=== PATIENT | female | born 1950 | race Caucasian/White ===

== ENCOUNTER 2017-02-10 09:35 | Outpatient (CLI) | payer MEDICARE, OTHER ==
[2017-02-10 13:40] LABS: BASOPHILS % (AUTO) 0.7 %; EOSINOPHILS # (AUTO) 0.1 10^3/uL (0.0-0.7); EOSINOPHILS % (AUTO) 1.7 %; HCT - HEMATOCRIT 38.3 % (37.0-47.0); LYMPHOCYTES # (AUTO) 1.2 10^3/uL (1.5-3.5); LYMPHOCYTES % (AUTO) 17.6 %; MEAN CORPUSCULAR HEMOGLOBIN 29.3 pg (27.0-31.0); MEAN CORPUSCULAR HGB CONC 33.9 g/dL (32.0-36.0); MEAN CORPUSCULAR VOLUME 86.5 fL (81.0-99.0); MONOCYTES # (AUTO) 0.6 10^3/uL (0.0-1.0); MONOCYTES % (AUTO) 8.5 %; NEUTROPHILS % (AUTO) 71.5 %; RED BLOOD COUNT 4.43 10^6/uL (4.20-5.40); RED CELL DISTRIBUTION WIDTH 14.2 % (12.0-15.0)
[2017-02-10 14:10] LABS: ALBUMIN/GLOBULIN RATIO 1.2 (1.0-2.2); BILIRUBIN,TOTAL 0.7 mg/dL (0.2-1.0); BUN - BLOOD UREA NITROGEN 17 mg/dL (6-20); CARBON DIOXIDE - CO2 25 mmol/L (21-32); CHLORIDE 107 mmol/L (101-111); CHOL/HDL RATIO 2.8 (<4.4); CHOLESTEROL 150 mg/dL; GFR - MDRD 55 (>89); GLUCOSE 91 mg/dL (70-100); HDL CHOLESTEROL 53 mg/dL; LDL/HDL RATIO 1.3 (<4.4); SODIUM 139 mmol/L (135-145); TOTAL PROTEIN 6.9 g/dL (6.7-8.2); TRIGLYCERIDES 134 mg/dL; VLDL CHOLESTEROL 27 mg/dL
== END 2017-02-10 09:36 | disposition home or self-care (01) ==
LOC: LAB.R 09:35
PROVIDERS: ATTEND Internal Medicine
DX: Z79.899 Other long term (current) drug therapy (principal); I10 Essential (primary) hypertension; I25.10 Atherosclerotic heart disease of native coronary artery without angina pectoris; E78.2 Mixed hyperlipidemia
CPT/HCPCS: 80053; 80061; 85025

== ENCOUNTER 2017-02-18 08:02 | Outpatient (CLI) | payer MEDICARE, OTHER ==
--- NOTE | 2017-02-21 11:24 | Mammography Report ---
DIGITAL BILATERAL SCREENING MAMMOGRAM: 02/18/2017 CLINICAL HISTORY: A 66-year-old female in for routine screening mammogram. The patient has a family h istory of breast cancer. Her sister had breast cancer at age 30. The patient has had no prior breast surgeries. COMPARISON: 03/04/2016, 01/20/2015, 01/09/2014, 11/30/2012, 09/20/2011, 04/22/2010, 01/03/2009, 10/16. TECHNIQUE: Craniocaudad and oblique lateral views of each breast were obtained with All-Scrap full fiel d digital mammography. FINDINGS: The breasts are almost entirely composed of fat. A small benign intramammary lymph node is once again noted in the upper outer quadrant of the left breast. This measures 0.4 cm in diameter. I t is unchanged as compared to multiple preceding exams. A few benign appearing calcifications are onc e again seen in both breasts. IMPRESSION: THE BREASTS APPEAR RADIOGRAPHICALLY BENIGN WITHOUT SIGNIFICANT CHANGE SEEN COMPARED T O MULTIPLE PRIOR EXAMS. BIRADS CATEGORY 1-NEGATIVE. RECOMMENDATION: ANNUAL BILATERAL SCREENING MAMMOGRAPHY. STANDARD QUALIFYING STATEMENTS 1. This examination was reviewed with the aid of Computer-Aided Detection (CAD). 2. A negative or benign imaging report should not delay biopsy if clinically suspicious findings are present. Consider surgical consultation if warranted. More than 5% of cancers are not identified by i maging. 3. Dense breasts may obscure an underlying neoplasm. JOB #: [id number] EXT JOB #:[id number]
== END 2017-02-18 08:03 | disposition home or self-care (01) ==
LOC: DI 08:02
PROVIDERS: ATTEND Internal Medicine
DX: Z12.31 Encounter for screening mammogram for malignant neoplasm of breast (principal); Z80.3 Family history of malignant neoplasm of breast
CPT/HCPCS: 77067

== ENCOUNTER 2018-05-24 08:00 | Outpatient (CLI) | payer MEDICARE, OTHER ==
[2018-05-24 14:59] LABS: BASOPHILS # (AUTO) 0.1 10^3/uL (0.0-0.1); BASOPHILS % (AUTO) 1.1 %; EOSINOPHILS # (AUTO) 0.2 10^3/uL (0.0-0.7); EOSINOPHILS % (AUTO) 2.3 %; HGB - HEMOGLOBIN 13.1 g/dL (12.0-16.0); LYMPHOCYTES # (AUTO) 1.7 10^3/uL (1.5-3.5); MEAN CORPUSCULAR HEMOGLOBIN 29.6 pg (27.0-31.0); MEAN CORPUSCULAR HGB CONC 33.7 g/dL (32.0-36.0); MEAN CORPUSCULAR VOLUME 87.8 fL (81.0-99.0); MEAN PLATELET VOLUME 10.2 fL (7.9-10.8); MONOCYTES # (AUTO) 0.5 10^3/uL (0.0-1.0); MONOCYTES % (AUTO) 7.8 %; NEUTROPHILS # (AUTO) 4.1 10^3/uL (1.5-6.6); NEUTROPHILS % (AUTO) 62.8 %; PLT - PLATELET COUNT 170 10^3/uL (130-450); RED BLOOD COUNT 4.44 10^6/uL (4.20-5.40); RED CELL DISTRIBUTION WIDTH 14.4 % (12.0-15.0); WHITE BLOOD COUNT 6.5 x10^3/uL (4.8-10.8)
[2018-05-24 16:28] LABS: ALBUMIN/GLOBULIN RATIO 1.3 (1.0-2.2); ALKALINE PHOSPHATASE 32 IU/L (42-121); ALT ALANINE AMINOTRANSFERASE 23 IU/L (10-60); AST ASPARTATE AMINOTRANSFERASE 22 IU/L (10-42); BILIRUBIN,TOTAL 0.6 mg/dL (0.2-1.0); BUN - BLOOD UREA NITROGEN 17 mg/dL (6-20); CALCIUM 8.8 mg/dL (8.5-10.3); CARBON DIOXIDE - CO2 26 mmol/L (21-32); CHLORIDE 105 mmol/L (101-111); CHOL/HDL RATIO 2.8 (<4.4); CHOLESTEROL 138 mg/dL; GFR - MDRD 55 (>89); GLUCOSE 91 mg/dL (70-100); HDL CHOLESTEROL 49 mg/dL; LDL CHOLESTEROL,CALCULATED 67 mg/dL; LDL/HDL RATIO 1.4 (<4.4); SODIUM 138 mmol/L (135-145); TOTAL PROTEIN 7.1 g/dL (6.7-8.2); VLDL CHOLESTEROL 22 mg/dL
== END 2018-05-24 08:01 | disposition home or self-care (01) ==
LOC: LAB.R 08:00
PROVIDERS: ATTEND Internal Medicine
DX: I25.10 Atherosclerotic heart disease of native coronary artery without angina pectoris (principal); E78.5 Hyperlipidemia, unspecified; E66.8 Other obesity; K21.9 Gastro-esophageal reflux disease without esophagitis; I10 Essential (primary) hypertension; Z79.899 Other long term (current) drug therapy
CPT/HCPCS: 80053; 80061; 83721; 84443; 85025

== ENCOUNTER 2018-06-08 12:59 | Outpatient (CLI) | payer MEDICARE, OTHER ==
--- NOTE | 2018-06-12 15:49 | Mammography Report ---
Reason: BILAT SCREEN w LA NENA Procedure Date: 06/08/2018 Accession Number: [id number] / [id number] Procedure: MARTHA - Screening Mammo w/[place] CPT Code: FULL RESULT: EXAM: Screening Mammo w/[place] DATE: 06/08/2018 1:34 PM CLINICAL HISTORY: 67-year-old female with history of early menses and family history of breast cancer in a sister at age 34. TECHNIQUE: Bilateral CC and MLO views were obtained. COMPARISON: 02/18/2017, 03/04/2016, 01/20/2015, 01/09/2014. FINDINGS: The breasts demonstrate diffuse fatty replacement bilaterally. Coarse typically benign calcifications are seen bilaterally. No suspicious masses, clustered microcalcifications, or regions of architectural distortion are identified. IMPRESSION: Benign findings RECOMMENDATION: Routine annual screening unless otherwise clinically indicated. BIRADS CATEGORY 2: Benign findings STANDARD QUALIFYING STATEMENTS: 1. This examination was not reviewed with the aid of Computer-Aided Detection (CAD). 2. A negative or benign imaging report should not delay biopsy if clinically suspicious findings are present. Consider surgical consultation if warrented. More than 5% of cancers are not identified by imaging. 3. Dense breasts may obscure an underlying neoplasm. 4. This examination was reviewed with the aid of 3D breast imaging (tomosynthesis).
== END 2018-06-08 13:00 | disposition home or self-care (01) ==
LOC: DI 12:59
PROVIDERS: ATTEND Internal Medicine
DX: Z12.31 Encounter for screening mammogram for malignant neoplasm of breast (principal); Z80.3 Family history of malignant neoplasm of breast
CPT/HCPCS: 77063; 77067

== ENCOUNTER 2018-06-08 13:06 | Outpatient (CLI) | payer MEDICARE, OTHER ==
--- NOTE | 2018-06-13 09:43 | DEXA Report ---
Reason: POSTMENOPAUSAL Procedure Date: 06/08/2018 Accession Number: [id number] / [id number] Procedure: DEX - Dexa Spine and/or Hip CPT Code: FULL RESULT: EXAM: Dexa Spine and/or Hip DATE: 06/08/2018 2:09 PM CLINICAL HISTORY: POSTMENOPAUSAL TECHNIQUE: Dual energy x-ray absorptiometry (DXA) was performed on a [employer] System. Regions measured are the AP Spine, femoral neck, and if needed forearm. COMPARISON: None. In accordance with the International Society for Clinical Densitometry (ISCD) guidelines, data from previous exams may be reanalyzed using current recommendations and techniques. This is done to allow a more accurate basis for comparison with the current study. FINDINGS: The data for the lumbar spine is as follows: BMD (g/cm/cm) T-SCORE Z-SCORE REGION L1 1.219 0.7 1.2 L2 1.238 0.3 0.8 L3 1.329 1.1 1.6 L4 1.334 1.1 1.6 TOTAL 1.283 0.9 1.3 NOTE: All evaluable vertebrae are used for classification The data for the hip is as follows: BMD (g/cm/cm) T-SCORE Z-SCORE REGION Neck 0.860 -1.3 -0.4 TOTAL 0.941 -0.5 0.0 NOTE: The femoral neck or total proximal femur, whichever is lowest, is used for classification. IMPRESSION: THE WHO CLASSIFICATION BASED ON THE INTERNATIONAL REFERENCE STANDARD IS OSTEOPENIA. THE FRACTURE RISK IS INCREASED. RECOMMENDATION: Patients with diagnosis of osteoporosis or osteopenia should have regular bone mineral density assessment. For those eligible for Medicare, routine testing is allowed once every 2 years. Testing frequency can be increased for patients who have rapidly progressing disease or for those who are receiving medical therapy to restore bone mass. COMMENT: World Health Organization (WHO) definitions for osteoporosis and osteopenia: NORMAL BMD: T-score at -1.0 or higher, fracture risk is low OSTEOPENIA BMD: T-score between -1.0 and -2.5, fracture risk is increased. OSTEOPOROSIS BMD: T-score at -2.5 or lower, fracture risk is high. National Osteoporosis Foundation recommends: 1. Obtain adequate dietary calcium (at least 1200 mg per day) and vitamin D (400-800 international units per day). 2. Participate, as appropriate, in regular weightbearing and muscle-strengthening exercise. 3. Avoid tobacco use and reduce alcohol and caffeine intake. 4. For more detailed information see the website at www.NOF.org.
== END 2018-06-08 13:07 | disposition home or self-care (01) ==
LOC: DI 13:06
PROVIDERS: ATTEND Internal Medicine
DX: M85.88 Other specified disorders of bone density and structure, other site (principal)
CPT/HCPCS: 77080

== ENCOUNTER 2019-05-15 09:29 | Outpatient (CLI) | payer MEDICARE, OTHER ==
[2019-05-15 10:15] LABS: BASOPHILS % (AUTO) 0.7 %; EOSINOPHILS # (AUTO) 0.1 10^3/uL (0.0-0.7); EOSINOPHILS % (AUTO) 2.3 %; HGB - HEMOGLOBIN 13.1 g/dL (12.0-16.0); LYMPHOCYTES # (AUTO) 1.5 10^3/uL (1.5-3.5); LYMPHOCYTES % (AUTO) 24.9 %; MEAN CORPUSCULAR HEMOGLOBIN 29.6 pg (27.0-31.0); MEAN CORPUSCULAR HGB CONC 32.8 g/dL (32.0-36.0); MEAN CORPUSCULAR VOLUME 90.3 fL (81.0-99.0); MEAN PLATELET VOLUME 11.7 fL (7.9-10.8); MONOCYTES # (AUTO) 0.4 10^3/uL (0.0-1.0); MONOCYTES % (AUTO) 7.1 %; NEUTROPHILS # (AUTO) 3.9 10^3/uL (1.5-6.6); NEUTROPHILS % (AUTO) 64.5 %; PLT - PLATELET COUNT 169 10^3/uL (130-450); RED BLOOD COUNT 4.42 10^6/uL (4.20-5.40); RED CELL DISTRIBUTION WIDTH 13.8 % (12.0-15.0)
[2019-05-15 10:43] LABS: ALBUMIN 3.9 g/dL (3.2-5.5); ALBUMIN/GLOBULIN RATIO 1.2 (1.0-2.2); ALKALINE PHOSPHATASE 28 IU/L (42-121); ALT ALANINE AMINOTRANSFERASE 21 IU/L (10-60); AST ASPARTATE AMINOTRANSFERASE 19 IU/L (10-42); BILIRUBIN,TOTAL 0.7 mg/dL (0.2-1.0); BUN - BLOOD UREA NITROGEN 18 mg/dL (6-20); CALCIUM 9.1 mg/dL (8.5-10.3); CARBON DIOXIDE - CO2 26 mmol/L (21-32); CHLORIDE 106 mmol/L (101-111); CHOL/HDL RATIO 3.2 (<4.4); CHOLESTEROL 155 mg/dL; GFR - MDRD 55 (>89); GLUCOSE 102 mg/dL (70-100); HDL CHOLESTEROL 49 mg/dL; LDL CHOLESTEROL,CALCULATED 77 mg/dL; LDL/HDL RATIO 1.6 (<4.4); SODIUM 140 mmol/L (135-145); TOTAL PROTEIN 7.2 g/dL (6.7-8.2); VLDL CHOLESTEROL 29 mg/dL
== END 2019-05-15 09:30 | disposition home or self-care (01) ==
LOC: LAB 09:29
PROVIDERS: ATTEND Family Medicine
DX: E03.9 Hypothyroidism, unspecified (principal); E78.5 Hyperlipidemia, unspecified; I10 Essential (primary) hypertension
CPT/HCPCS: 36415; 80053; 80061; 83721; 84443; 85025

== ENCOUNTER 2019-07-12 07:18 | Outpatient (CLI) | payer MEDICARE, OTHER ==
--- NOTE | 2019-07-13 10:24 | Mammography Report ---
Reason: ROUTINE MAMMO Procedure Date: 07/12/2019 Accession Number: [id number] / [id number] Procedure: MARTHA - Screening Mammo w/Brandt CPT Code: Final Report FULL RESULT: EXAM: Screening Mammo w/Brandt DATE: 07/12/2019 8:05 AM CLINICAL HISTORY: Screening encounter. Family history of breast cancer in the sister at the age of 35. TECHNIQUE: (B) - Bilateral CC and MLO views were obtained. COMPARISON: 06/08/2018 through 04/22/2010. PARENCHYMAL PATTERN: (F) - The breast(s) demonstrate(s) diffuse fatty replacement. FINDINGS: There are coarse typically benign calcifications. There are no suspicious masses, calcifications, or areas of distortion. IMPRESSION: Benign findings. BI-RADS category 2. RECOMMENDATION: (ANNUAL) - Recommend routine annual screening mammography. BI-RADS CATEGORY: (2) - Benign Findings. STANDARD QUALIFYING STATEMENTS: 1. This examination was not reviewed with the aid of Computer-Aided Detection (CAD). 2. A negative or benign imaging report should not preclude biopsy if clinically suspicious findings are present. 3. Dense breasts may obscure an underlying neoplasm. 4. This examination was reviewed with the aid of 3D breast imaging (tomosynthesis).
== END 2019-07-12 07:19 | disposition home or self-care (01) ==
LOC: DI 07:18
PROVIDERS: ATTEND Family Medicine
DX: Z12.31 Encounter for screening mammogram for malignant neoplasm of breast (principal); Z80.3 Family history of malignant neoplasm of breast
CPT/HCPCS: 77063; 77067

== ENCOUNTER 2020-08-15 11:20 | Outpatient (CLI) | payer MEDICARE, OTHER ==
[2020-08-15 11:33] LABS: BASOPHILS # (AUTO) 0.1 10^3/uL (0.0-0.1); BASOPHILS % (AUTO) 0.7 %; EOSINOPHILS # (AUTO) 0.1 10^3/uL (0.0-0.7); EOSINOPHILS % (AUTO) 1.6 %; HGB - HEMOGLOBIN 13.7 g/dL (12.0-16.0); LYMPHOCYTES # (AUTO) 1.9 10^3/uL (1.5-3.5); LYMPHOCYTES % (AUTO) 24.1 %; MEAN CORPUSCULAR HEMOGLOBIN 29.7 pg (27.0-31.0); MEAN CORPUSCULAR HGB CONC 32.2 g/dL (32.0-36.0); MEAN PLATELET VOLUME 10.6 fL (7.9-10.8); MONOCYTES # (AUTO) 0.5 10^3/uL (0.0-1.0); NEUTROPHILS # (AUTO) 5.1 10^3/uL (1.5-6.6); NEUTROPHILS % (AUTO) 66.1 %; PLT - PLATELET COUNT 190 10^3/uL (130-450); RED BLOOD COUNT 4.62 10^6/uL (4.20-5.40); RED CELL DISTRIBUTION WIDTH 13.6 % (12.0-15.0); WHITE BLOOD COUNT 7.7 x10^3/uL (4.8-10.8)
[2020-08-15 11:54] LABS: ALBUMIN 4.1 g/dL (3.2-5.5); ALBUMIN/GLOBULIN RATIO 1.3 (1.0-2.2); ALKALINE PHOSPHATASE 32 IU/L (42-121); ALT ALANINE AMINOTRANSFERASE 20 IU/L (10-60); AST ASPARTATE AMINOTRANSFERASE 22 IU/L (10-42); BILIRUBIN,TOTAL 0.8 mg/dL (0.2-1.0); BUN - BLOOD UREA NITROGEN 20 mg/dL (6-20); CALCIUM 9.1 mg/dL (8.5-10.3); CARBON DIOXIDE - CO2 25 mmol/L (21-32); CHLORIDE 102 mmol/L (101-111); CHOL/HDL RATIO 2.5 (<4.4); CHOLESTEROL 143 mg/dL; GLUCOSE 91 mg/dL (70-100); HDL CHOLESTEROL 58 mg/dL; LDL CHOLESTEROL,CALCULATED 68 mg/dL; LDL/HDL RATIO 1.2 (<4.4); SODIUM 136 mmol/L (135-145); TOTAL PROTEIN 7.3 g/dL (6.7-8.2); VLDL CHOLESTEROL 17 mg/dL
== END 2020-08-15 11:21 | disposition home or self-care (01) ==
LOC: LAB 11:20
PROVIDERS: ATTEND Family Medicine
DX: I10 Essential (primary) hypertension (principal); E03.9 Hypothyroidism, unspecified; E78.5 Hyperlipidemia, unspecified; E66.8 Other obesity; K21.9 Gastro-esophageal reflux disease without esophagitis
CPT/HCPCS: 36415; 80053; 80061; 83721; 84443; 85025

== ENCOUNTER 2020-08-21 14:01 | Outpatient (CLI) | payer MEDICARE, OTHER ==
--- NOTE | 2020-08-22 05:38 | Mammography Report ---
BILATERAL DIGITAL SCREENING MAMMOGRAM 3D/2D: 08/21/2020 CLINICAL: Routine screening. Comparison is made to exams dated: 07/12/2019 mammogram, 06/08/2018 mammogram, 02/18/2017 mammogram, an d 03/04/2016 mammogram - [facility]. The tissue of both breasts is predominantly fa tty. There is a new 0.4 cm x 0.3 cm asymmetry with an indistinct margin in the right breast at 4 o'clock m iddle depth. No other significant masses, calcifications, or other findings are seen in either breast. IMPRESSION: INCOMPLETE: NEEDS ADDITIONAL IMAGING EVALUATION The new 0.4 cm x 0.3 cm asymmetry in the right breast is indeterminate. A diagnostic mammogram and u ltrasound is recommended. This exam was interpreted at Station ID: [id number]. NOTE: For mammograms, a report in lay terms will be sent to the patient. Approximately 15% of breast malignancies will not be visualized mammographically. In the management of a palpable breast mass, a negative mammogram must not discourage biopsy of a clinically suspicious lesion. Electronically Signed By: Jose Martin Forte acr/:08/21/2020 16:55:38 ACR BI-RADS Category 0: Incomplete 3340F PARENCHYMAL PATTERN: (F) - The breast(s) demonstrate(s) diffuse fatty replacement. BI-RADS CATEGORY: (0) - 0 Mammo and [place] [id number] Immediate follow-up LATERALITY: (B)
== END 2020-08-21 14:02 | disposition home or self-care (01) ==
LOC: DI 14:01
PROVIDERS: ATTEND Family Medicine
DX: Z12.31 Encounter for screening mammogram for malignant neoplasm of breast (principal); R92.8 Other abnormal and inconclusive findings on diagnostic imaging of breast
CPT/HCPCS: 77067

== ENCOUNTER 2020-09-30 09:53 | Outpatient (CLI) | payer MEDICARE, OTHER ==
--- NOTE | 2020-10-01 10:28 | Mammography Report ---
UNILATERAL RIGHT DIGITAL DIAGNOSTIC MAMMOGRAM 3D/2D: 09/30/2020 CLINICAL: Patient returns today to evaluate a focal asymmetry in the right breast. Comparison is made to exams dated: 08/21/2020 mammogram, 07/12/2019 mammogram, 06/08/2018 mammogram, a nd 02/18/2017 mammogram - [facility]. The tissue of right breast is predominantly f atty. There is a stable 0.4 cm x 0.3 cm asymmetry with an indistinct margin in the right breast at 4 o'cloc k middle depth. Finding is seen only on tomography. This is seen in additional views. No other significant masses or calcifications are seen in the breast. IMPRESSION: INCOMPLETE: NEEDS ADDITIONAL IMAGING EVALUATION The stable 0.4 cm x 0.3 cm asymmetry in the right breast is indeterminate. An ultrasound is recommen ded. This exam was interpreted at Station ID: [id number]. NOTE: For mammograms, a report in lay terms will be sent to the patient. Approximately 15% of breast malignancies will not be visualized mammographically. In the management of a palpable breast mass, a negative mammogram must not discourage biopsy of a clinically suspicious lesion. Electronically Signed By: Jose Martin Forte acr/:09/30/2020 10:55:10 ACR BI-RADS Category 0: Incomplete 3340F PARENCHYMAL PATTERN: (F) - The breast(s) demonstrate(s) diffuse fatty replacement. BI-RADS CATEGORY: (0) - 0 Ultrasound [id number] Immediate follow-up LATERALITY: (B)
--- NOTE | 2020-10-01 10:28 | Ultrasound Report ---
LIMITED ULTRASOUND OF RIGHT BREAST: 09/30/2020 CLINICAL: Patient returns today to evaluate a focal asymmetry in the right breast. Comparison is made to exams dated: 09/30/2020 mammogram, 08/21/2020 mammogram, 07/12/2019 mammogram, mammogram, 02/18/2017 mammogram, and 03/04/2016 mammogram - [facility]. Ultrasound of the right breast 4 o'clock region was performed. No mass identified. There is a 2mm calcification in the right breast at 4 o'clock posterior depth. IMPRESSION: PROBABLY BENIGN A follow-up right breast mammogram in 6 months is recommended to demonstrate stability of the finding only seen on mammogram. This exam was interpreted at Station ID: [id number]. Electronically Signed By: Jose Martin Forte acr/:09/30/2020 11:03:18 Ultrasound BI-RADS: 3 Probably benign BI-RADS CATEGORY: (3) - 3 Mammogram [id number] 6 month follow-up LATERALITY: (B)
== END 2020-09-30 09:54 | disposition home or self-care (01) ==
LOC: DI 09:53
PROVIDERS: ATTEND Family Medicine
DX: R92.8 Other abnormal and inconclusive findings on diagnostic imaging of breast (principal); N64.89 Other specified disorders of breast

== ENCOUNTER 2021-02-04 11:13 | Outpatient (CLI) | payer MEDICARE, OTHER ==
[2021-02-04 11:38] LABS: BASOPHILS # (AUTO) 0.1 10^3/uL (0.0-0.1); BASOPHILS % (AUTO) 0.7 %; EOSINOPHILS # (AUTO) 0.3 10^3/uL (0.0-0.7); EOSINOPHILS % (AUTO) 4.5 %; HCT - HEMATOCRIT 41.1 % (37.0-47.0); HGB - HEMOGLOBIN 13.3 g/dL (12.0-16.0); LYMPHOCYTES % (AUTO) 27.9 %; MEAN CORPUSCULAR HEMOGLOBIN 29.2 pg (27.0-31.0); MEAN CORPUSCULAR HGB CONC 32.4 g/dL (32.0-36.0); MEAN CORPUSCULAR VOLUME 90.3 fL (81.0-99.0); MEAN PLATELET VOLUME 11.1 fL (7.9-10.8); MONOCYTES # (AUTO) 0.5 10^3/uL (0.0-1.0); MONOCYTES % (AUTO) 6.3 %; NEUTROPHILS # (AUTO) 4.3 10^3/uL (1.5-6.6); NEUTROPHILS % (AUTO) 60.2 %; PLT - PLATELET COUNT 189 10^3/uL (130-450); RED BLOOD COUNT 4.55 10^6/uL (4.20-5.40); RED CELL DISTRIBUTION WIDTH 13.7 % (12.0-15.0); WHITE BLOOD COUNT 7.2 x10^3/uL (4.8-10.8)
[2021-02-04 11:51] LABS: ALBUMIN/GLOBULIN RATIO 1.3 (1.0-2.2); ALKALINE PHOSPHATASE 28 IU/L (42-121); ALT ALANINE AMINOTRANSFERASE 22 IU/L (10-60); AST ASPARTATE AMINOTRANSFERASE 20 IU/L (10-42); BILIRUBIN,TOTAL 0.6 mg/dL (0.2-1.0); BUN - BLOOD UREA NITROGEN 17 mg/dL (6-20); CALCIUM 9.3 mg/dL (8.5-10.3); CARBON DIOXIDE - CO2 26 mmol/L (21-32); CHLORIDE 104 mmol/L (101-111); CHOL/HDL RATIO 2.5 (<4.4); CHOLESTEROL 141 mg/dL; CREATININE 0.9 mg/dL (0.4-1.0); GFR - MDRD 62 (>89); GLUCOSE 91 mg/dL (70-100); HDL CHOLESTEROL 57 mg/dL; LDL CHOLESTEROL,CALCULATED 65 mg/dL; LDL/HDL RATIO 1.1 (<4.4); POTASSIUM 4.2 mmol/L (3.5-5.0); SODIUM 139 mmol/L (135-145); TOTAL PROTEIN 7.2 g/dL (6.7-8.2); TRIGLYCERIDES 96 mg/dL; VLDL CHOLESTEROL 19 mg/dL
== END 2021-02-04 11:14 | disposition home or self-care (01) ==
LOC: LAB 11:13
PROVIDERS: ATTEND Family Medicine
DX: I25.10 Atherosclerotic heart disease of native coronary artery without angina pectoris (principal); K21.9 Gastro-esophageal reflux disease without esophagitis; I10 Essential (primary) hypertension
CPT/HCPCS: 36415; 80053; 80061; 83721; 85025

== ENCOUNTER 2022-02-19 10:16 | Outpatient (CLI) | payer MEDICARE, OTHER | END 2022-02-19 10:17 | disposition home or self-care (01) | LOC: LAB 10:16 | PROVIDERS: ATTEND Internal Medicine Cardiovascular Disease | DX: I25.10 Atherosclerotic heart disease of native coronary artery without angina pectoris (principal); I49.3 Ventricular premature depolarization | CPT/HCPCS: 36415; 83735 ==

== ENCOUNTER 2022-05-05 09:59 | Outpatient (CLI) | payer MEDICARE, OTHER ==
[2022-05-05 10:35] LABS: ALBUMIN/GLOBULIN RATIO 1.4 (1.0-2.2); ALKALINE PHOSPHATASE 28 IU/L (42-121); ALT ALANINE AMINOTRANSFERASE 23 IU/L (10-60); AST ASPARTATE AMINOTRANSFERASE 22 IU/L (10-42); BILIRUBIN,TOTAL 0.4 mg/dL (0.2-1.0); BUN - BLOOD UREA NITROGEN 22 mg/dL (6-20); CARBON DIOXIDE - CO2 25 mmol/L (21-32); CHLORIDE 104 mmol/L (101-111); CHOL/HDL RATIO 2.3 (<4.4); CHOLESTEROL 155 mg/dL; CREATININE 0.9 mg/dL (0.4-1.0); GFR - MDRD 62 (>89); GLUCOSE 91 mg/dL (70-100); HDL CHOLESTEROL 66 mg/dL; LDL CHOLESTEROL,CALCULATED 75 mg/dL; LDL/HDL RATIO 1.1 (<4.4); POTASSIUM 4.3 mmol/L (3.5-5.0); SODIUM 134 mmol/L (135-145); TOTAL PROTEIN 6.9 g/dL (6.7-8.2); TRIGLYCERIDES 70 mg/dL; VLDL CHOLESTEROL 14 mg/dL
== END 2022-05-05 10:00 | disposition home or self-care (01) ==
LOC: LAB 09:59
PROVIDERS: ATTEND Internal Medicine Cardiovascular Disease
DX: I25.10 Atherosclerotic heart disease of native coronary artery without angina pectoris (principal); I49.3 Ventricular premature depolarization
CPT/HCPCS: 36415; 80053; 80061; 83721

== ENCOUNTER 2022-05-28 12:32 | Outpatient (CLI) | payer MEDICARE, OTHER ==
--- NOTE | 2022-05-31 16:05 | Mammography Report ---
BILATERAL DIGITAL DIAGNOSTIC MAMMOGRAM 3D/2D: 05/28/2022 CLINICAL: Patient returns for a 6 month follow up of the right breast, due for bilateral. Comparison is made to exams dated: 09/30/2020 mammogram, 08/21/2020 mammogram, 07/12/2019 mammogram, mammogram, and 02/18/2017 mammogram - [facility]. Both breasts are almost entirely fatty (category a/<25% glandular tissue). There is a stable benign 0.4 cm x 0.3 cm asymmetry with an indistinct margin in the right breast at 4 o'clock middle depth. No other significant masses, calcifications, or other findings are seen in either breast. IMPRESSION: BENIGN There is no mammographic evidence of malignancy. A 1 year screening mammogram is recommended. Based on the Tyrer Cuzick model (a risk assessment model) the patients lifetime risk is 6.8% and her 10 year risk is 5.1%. According to the ACR, ACS, and NCCN guidelines, an annual breast MRI exam tish g with mammogram is recommended if the patients lifetime risk is 20% or greater. This exam was interpreted at Station ID: [id number]. NOTE: For mammograms, a report in lay terms will be sent to the patient. Approximately 15% of breast malignancies will not be visualized mammographically. In the management of a palpable breast mass, a negative mammogram must not discourage biopsy of a clinically suspicious lesion. Electronically Signed By: Evens Rosales M.D., jr/luke:05/31/2022 09:48:46 ACR BI-RADS Category 2: Benign Finding(s) 3342F PARENCHYMAL PATTERN: (F) - The breast(s) demonstrate(s) diffuse fatty replacement. BI-RADS CATEGORY: (2) - 2 RECOMMENDATION: (ANNUAL) - Recommend routine annual screening mammography. [id number] 1 year screening LATERALITY: (B)
== END 2022-05-28 12:33 | disposition home or self-care (01) ==
LOC: DI 12:32
PROVIDERS: ATTEND Family Medicine
DX: R92.8 Other abnormal and inconclusive findings on diagnostic imaging of breast (principal)

== ENCOUNTER 2022-07-10 15:48 | Outpatient (CLI) | payer MEDICARE, OTHER | END 2022-07-10 15:49 | disposition critical access hospital (66) | LOC: EMS 15:48 | DX: S00.212A Abrasion of left eyelid and periocular area, initial encounter (principal); M25.422 Effusion, left elbow; W01.0XXA Fall on same level from slipping, tripping and stumbling without subsequent striking against object, initial encounter; Y92.213 High school as the place of occurrence of the external cause | CPT/HCPCS: A0425; A0429 ==

== ENCOUNTER 2022-07-10 16:06 | Emergency (ER) | payer MEDICARE, OTHER ==
[2022-07-10 16:14] VITALS: BP 121/90
--- NOTE | 2022-07-10 16:19 | ED Physician Documentation ---
History of Present Illness - Stated complaint Stated Complaint: GLF - Chief complaint Chief Complaint: Trauma Ext - History obtained from History obtained from: Patient, EMS - History of Present Illness Timing: How many hours ago (1) Pain level max: 6 Pain level now: 5 - Additonal information Additional information: Patient is a 71-year-old female who presents to the emergency department after ground-level fall. She was at [employer] today when she tripped and fell, injuring the left elbow, left upper arm and striking her head on the ground. 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 No loss of consciousness. No vomiting. Worse with movement, better with rest. No neck or back pain. Patient is right-handed. No numbness or tingling. No paresthesias. No neurodeficits. 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 Cardiovascular: CABG - Present Medications Home Medications: Ambulatory Orders Medication Instructions Recorded Confirmed Atorvastatin Calcium [Lipitor] 80 mg ORAL HS 07/10/22 07/10/22 Lisinopril [Zestril] 2.5 mg PO DAILY 07/10/22 07/10/22 Metoprolol Succinate [Toprol Xl] 25 mg PO DAILY 07/10/22 07/10/22 - Allergies Allergies/Adverse Reactions: Allergies Allergy/AdvReac Type Severity Reaction Status Date / Time No Known Drug Allergies Allergy Verified 07/10/22 16:11 PD ED PE NORMAL - Vitals Vital signs reviewed: Yes - General General: Alert and oriented X 3, No acute distress - HEENT HEENT: Moist mucous membranes - Neck Neck: Supple, no meningeal sign - Cardiac Cardiac: RRR - Respiratory Respiratory: No respiratory distress, Clear bilaterally - Abdomen Abdomen: Soft, Non tender, Non distended - Back Back: No spinal TTP - Derm Derm: Warm and dry - Extremities Extremities: Other (Tenderness to palpation over the distal humerus, left elbow. Neurovascularly intact. Swelling noted. 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, No motor deficit, No sensory deficit, Normal speech Eye Opening: Spontaneous Motor: Obeys Commands Verbal: Oriented GCS Score: 15 - Psych Psych: Normal mood, Normal affect Results - Vitals Vitals: Vital Signs - 24 hr 07/10/22 16:11 Temperature 36.3 C L Heart Rate 72 Respiratory 18 Rate Blood Pressure 121/90 H O2 Saturation 100 Oxygen O2 Source Room air - Rads (name of study) Left elbow x-ray Radiology: Final report received, EMP read contemporaneously, See rad report Left Humerus x-ray Radiology: Final report received, EMP read contemporaneously, See rad report head CT Radiology: Final report received, EMP read contemporaneously, See rad report Procedures - Splint (location) L arm Splint applied by: Physician, Tech Type of splint: Fiberglass, Long arm Other: Patient tolerated well, No complications, Neurovascular intact PD MEDICAL DECISION MAKING - ED course Complexity details: reviewed results, re-evaluated patient, considered differential, d/w patient, d/w family, d/w [facility] consultant ED course: Patient is a 71-year-old female with a impacted distal humerus fracture. In multiple fragments. Neurovascularly intact. Discussed the case with Dr. Slater, orthopedics who recommends consultation with [facility]. He recommends placing the patient on long-arm posterior splint. I consulted Savannahjanine, Dr. Tai, orthopedics recommends transfer to the [facility] emergency department. Dr. Mora, Emergency Department Physician graciously accepts in transfer. Patient declines pain medication here. We will transfer her for further care. This document was made in part using voice recognition software. While efforts are made to proofread this document, sound alike and grammatical errors may occur. Departure - Departure Disposition: 02 Transfer Acute Care Hosp Clinical Impression: Humerus distal fracture Qualifiers: Encounter type: initial encounter Fracture type: closed Fracture morphology: other fracture Fracture alignment: displaced Laterality: left Qualified Code(s): S42.492A - Other displaced fracture of lower end of left humerus, initial encounter for closed fracture Condition: Stable
--- NOTE | 2022-07-10 16:51 | CT Report ---
PROCEDURE: CT brain without contrast INDICATIONS: fall, head injury TECHNIQUE: Noncontrast 4.5 mm thick angled axial sections acquired from the foramen magnum to the vertex. For r adiation dose reduction, the following was used: automated exposure control, adjustment of mA and/or kV according to patient size. COMPARISON: None. FINDINGS: Image quality: Excellent. CSF spaces: Basal cisterns are patent. No extra-axial fluid collections. Ventricles are normal in size and shape. Brain: No midline shift. No intracranial masses or hemorrhage. Ortega-white matter interface is norm al. Moderate atrophy and multifocal white matter chronic ischemic change noted. Atherosclerotic vascu lar calcification noted in the cavernous segments of both internal carotid arteries as well as the in tradural vertebral arteries. Skull and face: Calvarium and visualized facial bones are intact, without suspicious lesions.. Incid ental hyperostosis frontalis interna noted. Sinuses: Visualized sinuses and mastoids are clear. IMPRESSION: Atrophy and chronic ischemic change without intracranial hemorrhage or mass effect Reviewed by: Kike Goyal MD on 07/10/2022 3:50 PM AKDT Approved by: Kike Goyal MD on 07/10/2022 3:50 PM AKDT Station ID: [id number]
--- NOTE | 2022-07-10 17:18 | XRAY Report ---
PROCEDURE: Elbow 3 View LT INDICATIONS: fall, L elbow pain TECHNIQUE: 3 views of the elbow were acquired. COMPARISON: None FINDINGS: Bones: Acute comminuted fractures involving distal humeral shaft as well as medial and lateral epicon dyles are seen with fracture line extending to both medial and lateral epicondyles with dorsal displa cement and overlapping of fracture site. No suspicious bony lesions. Soft tissues: Large joint effusion is present. No suspicious soft tissue calcifications. IMPRESSION: 1. Acute comminuted, impacted and displaced distal humeral fracture as above. No gross elbow dislocat ion. Reviewed by: Isaiah Izaguirre MD on 07/10/2022 5:17 PM PDT Approved by: Isaiah Izaguirre MD on 07/10/2022 5:17 PM PDT Station ID: [id number]
--- NOTE | 2022-07-10 17:19 | XRAY Report ---
PROCEDURE: Humerus LT INDICATIONS: fall, L arm pain TECHNIQUE: 2 views of the humerus were acquired. COMPARISON: None FINDINGS: Bones: Comminuted and displaced distal humeral fracture is partially visualized on this study. No pro ximal to mid humeral fracture or dislocation. No suspicious bony lesions. Soft tissues: No suspicious soft tissue calcifications. IMPRESSION: Comminuted and displaced distal humeral fracture. No proximal to mid humeral fracture or dislocation. Reviewed by: Isaiah Izaguirre MD on 07/10/2022 5:17 PM PDT Approved by: Isaiah Izaguirre MD on 07/10/2022 5:17 PM PDT Station ID: [id number]
[2022-07-10 20:53] LABS: BASOPHILS # (AUTO) 0.1 10^3/uL (0.0-0.1); BASOPHILS % (AUTO) 0.6 %; EOSINOPHILS # (AUTO) 0.1 10^3/uL (0.0-0.7); EOSINOPHILS % (AUTO) 0.6 %; HCT - HEMATOCRIT 41.4 % (37.0-47.0); HGB - HEMOGLOBIN 12.9 g/dL (12.0-16.0); LYMPHOCYTES % (AUTO) 16.7 %; MEAN CORPUSCULAR HEMOGLOBIN 28.9 pg (27.0-31.0); MEAN CORPUSCULAR HGB CONC 31.2 g/dL (32.0-36.0); MEAN CORPUSCULAR VOLUME 92.6 fL (81.0-99.0); MEAN PLATELET VOLUME 11.1 fL (7.9-10.8); MONOCYTES # (AUTO) 0.6 10^3/uL (0.0-1.0); MONOCYTES % (AUTO) 4.9 %; NEUTROPHILS % (AUTO) 76.8 %; PLT - PLATELET COUNT 183 10^3/uL (130-450); RED BLOOD COUNT 4.47 10^6/uL (4.20-5.40); RED CELL DISTRIBUTION WIDTH 13.9 % (12.0-15.0); WHITE BLOOD COUNT 11.7 x10^3/uL (4.8-10.8)
[2022-07-10 21:04] LABS: CALCIUM 8.8 mg/dL (8.5-10.3); CREATININE 0.9 mg/dL (0.4-1.0); POTASSIUM 4.1 mmol/L (3.5-5.0)
== END 2022-07-10 22:34 | disposition short-term general hospital (02) ==
LOC: EDUNIT# → ED 16:06
DX: S42.492A Other displaced fracture of lower end of left humerus, initial encounter for closed fracture (principal); W01.0XXA Fall on same level from slipping, tripping and stumbling without subsequent striking against object, initial encounter; Y92.213 High school as the place of occurrence of the external cause; I10 Essential (primary) hypertension
CPT/HCPCS: 36415; 80048; 85025; 99282; 99285

== ENCOUNTER 2022-12-09 09:03 | Outpatient (CLI) | payer MEDICARE, OTHER ==
[2022-12-09 09:37] LABS: ALBUMIN 4.1 g/dL (3.2-5.5); ALKALINE PHOSPHATASE 26 IU/L (42-121); ALT ALANINE AMINOTRANSFERASE 19 IU/L (10-60); AST ASPARTATE AMINOTRANSFERASE 23 IU/L (10-42); BILIRUBIN,DIRECT 0.1 mg/dL (0.1-0.5); BILIRUBIN,TOTAL 0.7 mg/dL (0.2-1.0); CHOLESTEROL 140 mg/dL; HDL CHOLESTEROL 69 mg/dL; LDL CHOLESTEROL,CALCULATED 58 mg/dL; LDL/HDL RATIO 0.8 (<4.4); TOTAL PROTEIN 7.2 g/dL (6.7-8.2); TRIGLYCERIDES 63 mg/dL; VLDL CHOLESTEROL 13 mg/dL
== END 2022-12-09 09:04 | disposition home or self-care (01) ==
LOC: LAB 09:03
PROVIDERS: ATTEND Internal Medicine Cardiovascular Disease
DX: I25.10 Atherosclerotic heart disease of native coronary artery without angina pectoris (principal)
CPT/HCPCS: 36415; 80061; 80076; 83721

== ENCOUNTER 2023-06-14 08:48 | Outpatient (CLI) | payer MEDICARE, OTHER ==
--- NOTE | 2023-06-15 10:44 | Mammography Report ---
BILATERAL DIGITAL SCREENING MAMMOGRAM 3D/2D: 06/14/2023 CLINICAL: Routine screening. Comparison is made to exams dated: 05/28/2022 mammogram, 09/30/2020 mammogram, 08/21/2020 mammogram, 09/11/2018 mammogram, 06/08/2018 mammogram, and 02/18/2017 mammogram - [facility]. Both breasts are almost entirely fatty (category a/<25% glandular tissue). No significant masses, calcifications, or other findings are seen in either breast. IMPRESSION: NEGATIVE There is no mammographic evidence of malignancy. A 1 year screening mammogram is recommended. Based on the Tyrer Cuzick model (a risk assessment model) the patients lifetime risk is 6.4% and her 10 year risk is 5.2%. According to the ACR, ACS, and NCCN guidelines, an annual breast MRI exam tish g with mammogram is recommended if the patients lifetime risk is 20% or greater. This exam was interpreted at Station ID: [id number]. NOTE: For mammograms, a report in lay terms will be sent to the patient. Approximately 15% of breast malignancies will not be visualized mammographically. In the management of a palpable breast mass, a negative mammogram must not discourage biopsy of a clinically suspicious lesion. Electronically Signed By: Zeenat gordon/luke:06/14/2023 17:15:47 letter sent: No_Letter ACR BI-RADS Category 1: Negative 3341F PARENCHYMAL PATTERN: (F) - The breast(s) demonstrate(s) diffuse fatty replacement. BI-RADS CATEGORY: (1) - 1 Mammogram [id number] 1 year screening LATERALITY: (B)
== END 2023-06-14 08:49 | disposition home or self-care (01) ==
LOC: DI 08:48
DX: Z12.31 Encounter for screening mammogram for malignant neoplasm of breast (principal)

== ENCOUNTER 2023-09-20 12:15 | Outpatient (CLI) | payer MEDICARE, OTHER ==
[2023-09-20 12:36] LABS: BASOPHILS % (AUTO) 0.8 %; EOSINOPHILS # (AUTO) 0.1 10^3/uL (0.0-0.7); EOSINOPHILS % (AUTO) 2.3 %; HCT - HEMATOCRIT 40.9 % (37.0-47.0); HGB - HEMOGLOBIN 13.1 g/dL (12.0-16.0); LYMPHOCYTES # (AUTO) 1.5 10^3/uL (1.5-3.5); LYMPHOCYTES % (AUTO) 28.1 %; MEAN CORPUSCULAR VOLUME 90.5 fL (81.0-99.0); MONOCYTES # (AUTO) 0.4 10^3/uL (0.0-1.0); MONOCYTES % (AUTO) 7.7 %; NEUTROPHILS # (AUTO) 3.2 10^3/uL (1.5-6.6); NEUTROPHILS % (AUTO) 60.7 %; PLT - PLATELET COUNT 159 10^3/uL (130-450); RED BLOOD COUNT 4.52 10^6/uL (4.20-5.40); RED CELL DISTRIBUTION WIDTH 13.4 % (12.0-15.0); WHITE BLOOD COUNT 5.3 x10^3/uL (4.8-10.8)
[2023-09-20 12:50] LABS: ALBUMIN/GLOBULIN RATIO 1.7 (1.0-2.2); ALKALINE PHOSPHATASE 25 IU/L (42-121); ALT ALANINE AMINOTRANSFERASE 15 IU/L (10-60); AST ASPARTATE AMINOTRANSFERASE 18 IU/L (10-42); BILIRUBIN,TOTAL 0.5 mg/dL (0.2-1.0); BUN - BLOOD UREA NITROGEN 16 mg/dL (6-20); CALCIUM 9.1 mg/dL (8.5-10.3); CARBON DIOXIDE - CO2 29 mmol/L (21-32); CHLORIDE 105 mmol/L (101-111); CHOL/HDL RATIO 2.2 (<4.4); CHOLESTEROL 135 mg/dL; CREATININE 0.9 mg/dL (0.6-1.3); GFR - MDRD 61 (>89); GLUCOSE 79 mg/dL (74-104); HDL CHOLESTEROL 61 mg/dL; LDL CHOLESTEROL,CALCULATED 56 mg/dL; LDL/HDL RATIO 0.9 (<4.4); POTASSIUM 4.2 mmol/L (3.5-4.5); SODIUM 139 mmol/L (135-145); TOTAL PROTEIN 6.4 g/dL (6.4-8.9); TRIGLYCERIDES 91 mg/dL (48-352); VLDL CHOLESTEROL 18 mg/dL
[2023-09-20 13:21] LABS: ESTIMATED AVERAGE GLUCOSE 105 mg/dL (70-100); HEMOGLOBIN A1c% 5.3 % (4.27-6.07)
[2023-09-20 19:45] LABS: THYROID STIMULATING HORMONE 2.84 uIU/mL (0.34-5.60)
== END 2023-09-20 12:16 | disposition home or self-care (01) ==
LOC: LAB 12:15
PROVIDERS: ATTEND Nurse Practitioner Family
DX: I10 Essential (primary) hypertension (principal); E78.5 Hyperlipidemia, unspecified; E66.8 Other obesity; E03.9 Hypothyroidism, unspecified; I25.10 Atherosclerotic heart disease of native coronary artery without angina pectoris
CPT/HCPCS: 36415; 80053; 80061; 82248; 83036; 83721; 84443; 85025